=== PATIENT | male | born 2000 | race Hispanic/Latino ===

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

== ENCOUNTER 2018-07-04 05:20 | Emergency (ER) | payer SELFPAY ==
[2018-07-04 06:02] LABS: Hemoglobin 15.4 g/dL (14.0-18.0); Mean Corpuscular HGB CONC 32.5 g/dL (32.0-36.0); Mean Corpuscular Hemoglobin 28.7 pg (25.0-35.0); Mean Corpuscular Volume 88.4 fL (78.0-98.0); Mean Platelet Volume 7.1 fL (7.4-10.4); Platelet Count 251 thou/uL (130-400); RBC Distribution Width 11.8 % (11.5-14.5); Red Blood Cell (RBC) Count 5.34 mill/uL (4.00-5.20); White Blood Cell (WBC) Count 19.3 thou/uL (4.8-10.8)
[2018-07-04 06:12] LABS: Band 8 % (5-11); Lymphocytes 6 % (28-48); MDiff Complete? YES; Monocytes 7 % (0-4); Neutrophil 79 % (31-61); PLT Morphology Comment Appears Adequate; RBC Morphology Normal
[2018-07-04 06:13] LABS: ALT (SGPT) 30 U/L (8-55); AST (SGOT) 19 U/L (10-45); Albumin 4.8 g/dL (3.5-5.0); Alkaline Phosphatase 60 U/L (Less than 750); Anion Gap 12 mmol/L (10-20); BUN (Urea Nitrogen) 13 mg/dL (8.4-21.0); Bilirubin, Total 1.1 mg/dL (0.2-1.2); Calc. Creatinine Clearance 0 mL/min (70-130); Calcium 9.8 mg/dL (7.8-10.44); Carbon Dioxide 30 mmol/L (22-29); Chloride 99 mmol/L (98-107); Estimated GFR-MDRD Greater than 90; Globulin 3.1 g/dL (2.4-3.5); Glucose 101 mg/dL (70-105); Lipase 9 U/L (8-78); Potassium 3.6 mmol/L (3.5-5.1); Protein, Total 7.9 g/dL (6.0-8.3); Sodium 137 mmol/L (136-145)
[2018-07-04 06:17] LABS: Bilirubin Negative (Negative); Blood, Urine Negative (Negative); Clarity CLEAR (Clear); Glucose, Urine (Dipstick) Negative (Negative); Leukocyte Negative (Negative); Nitrite Negative (Negative); Protein, Urine (Dipstick) Negative (Neg-Trace); Specific Gravity, Urine 1.024 (1.002-1.036)
[2018-07-04] MEDS ORDERED: Acetaminophen 500 MG TAB ONE (07:35)
--- NOTE | 2018-07-04 07:59 | ULT ---
GALLBLADDER ULTRASOUND: INDICATION: Pain. FINDINGS: There is heterogeneity of the hepatic echotexture. There is no acute gallbladder pathology. The com mon duct is normal at 3 mm. No ascites. Olivarez's sign reported as negative. IMPRESSION: 1. No acute gallbladder pathology. 2. Mild increased echogenicity of the hepatic parenchyma which may relate to hepatic steatosis. Cor relate clinically. POS: [facility]
--- NOTE | 2018-07-04 08:35 | RAD ---
ONE VIEW CHEST TWO VIEWS ABDOMEN: HISTORY: Pain. FINDINGS: CHEST 1 VIEW: Normal cardiac silhouette. The lungs and pleural spaces are clear. No pneumothorax or osseous abnor malities. ABDOMEN 2 VIEWS: Nonspecific bowel gas pattern. No distention or dilatation. No suspicious densities. No pneumoperi toneum. IMPRESSION: 1. No acute cardiopulmonary process. 2. Nonspecific bowel gas pattern. POS: [facility]
[2018-07-04] MEDS ORDERED: ISOVUE-370 76%-LOCM 1 ML ONE (10:08)
[2018-07-04] MEDS ORDERED: Iopamidol 370 76% 50 ML VIAL FS ONE (10:08)
--- NOTE | 2018-07-04 11:48 | CT ---
CT ABDOMEN WITH CONTRAST CT PELVIS WITH CONTRAST: HISTORY: Pain. Fever. COMPARISON: None. FINDINGS: ABDOMEN CT: Lung bases are clear. Normal heart size. No pericardial effusion. Visualized aorta is unremarkable . Mild hypoattenuation of the liver suggesting hepatic steatosis. Liver, spleen, pancreas, and adrenal glands have appropriate enhancement. Gallbladder and portal vein are unremarkable. Symmetric enhancement of the kidneys. No obstructive uropathy. No gastrohepatic, retrocrural, or periportal lymphadenopathy. No mesenteric mass, lymphadenopathy, free air, or free fluid. Gastric mucosa, duodenum, and multiple normal-caliber small bowel lops are noted. Ileocecal junction is normal. Normal-caliber appendix. Unremarkable colon. PELVIC CT: No mass, lymphadenopathy, free air, or free fluid. Urinary bladder is unremarkable. No lytic or blastic lesions in the osseous structures. IMPRESSION: Normal caliber appendix. POS: [facility]
== END 2018-07-04 10:43 | disposition home or self-care (01) ==
LOC: ERS 05:20
DX: A08.4 Viral intestinal infection, unspecified (principal)
CPT/HCPCS: 36415; 74022; 74177; 76705; 80053; 81003; 83605; 83690; 85025; 87040; 87804; 96360; 96361

== ENCOUNTER 2018-11-20 19:04 | Emergency (ER) | payer SELFPAY ==
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
== END 2018-11-20 21:04 | disposition home or self-care (01) ==
LOC: ERS 19:04
DX: S06.0X9A Concussion with loss of consciousness of unspecified duration, initial encounter (principal); V89.2XXA Person injured in unspecified motor-vehicle accident, traffic, initial encounter
CPT/HCPCS: 70450; 72125

== ENCOUNTER 2019-02-10 18:51 | Emergency (ER) | payer SELFPAY ==
[2019-02-10] MEDS ORDERED: Ondansetron ODT 4 MG TAB ONE (19:52)
== END 2019-02-10 21:19 | disposition home or self-care (01) ==
LOC: ERS 18:51
DX: R11.2 Nausea with vomiting, unspecified (principal)
CPT/HCPCS: 99283; Q0162

== ENCOUNTER 2022-03-28 15:03 | Emergency (ER) | payer SELFPAY | END 2022-03-28 16:51 | disposition home or self-care (01) | LOC: ERS 15:03 | DX: M54.50 Low back pain, unspecified (principal) | CPT/HCPCS: 72072; 72100; 99283 ==